=== PATIENT | male | born 1985 | race Caucasian/White ===

== ENCOUNTER 2019-04-22 08:50 | Emergency (ER) | payer MEDICAID ==
[~2019-04-22] VITALS: Ht 188 cm; Wt 87.0 kg
--- NOTE | 2019-04-22 09:00 | NUR ---
Client arived via ambulance. He was picked up in [place]. He says that he is from the [facility]. He receives Invega Sustenna in the mail from the [facility] and injects it himself. His back pack has about five boxes of Nyquil. He says he has been in the [place] for 13 years. He speaks some Nepalese but is difficult to communicate with. He is shaky and cold. Gave clietn warm blankets. He is dozing off to sleep and unable to answer many questions.
--- NOTE | 2019-04-22 09:19 | NUR ---
Pt brothers phone number: [phone]
[2019-04-22] MEDS: LORazepam 1 MG tablet PO PRN ×3 (09:30→13:43)
--- NOTE | 2019-04-22 09:37 | NUR ---
Client has risperidone and an injectable medication from the [facility] with Bhutanese writing on it.
[2019-04-22] MEDS ORDERED: RISP2TAB97 PO (09:41)
--- NOTE | 2019-04-22 10:13 | NUR ---
Lab here to draw blood. Client cooperative. Urine collected and sent. It is clear and pale yellow. Sent client's risperdal and injectable Invega to the pharmacy.
[2019-04-22 10:37] LABS: BASOPHILS % (AUTO) 0.5 % (0-1); EOSINOPHILS % (AUTO) 0.2 % (0-6); HEMATOCRIT 43.2 % (42.0-52.0); HEMOGLOBIN 14.9 g/dl (14.0-17.9); LYMPHOCYTES # (AUTO) 1.6 X10'3 (1.1-4.8); LYMPHOCYTES % (AUTO) 15.8 % (21-51); MEAN CORPUSCULAR HEMOGLOBIN 30.9 PG (27.0-31.0); MEAN CORPUSCULAR HGB CONC 34.4 g/dL (33.0-36.5); MEAN CORPUSCULAR VOLUME 89.7 FL (78-98); MEAN PLATELET VOLUME 8.3 FL (7.4-10.4); MONOCYTES # (AUTO) 0.4 X10'3 (0-0.9); MONOCYTES % (AUTO) 3.9 % (2-12); NEUTROPHILS # (AUTO) 7.9 X10'3 (1.8-7.7); NEUTROPHILS % (AUTO) 79.6 % (42-75); PLATELET COUNT 245 X10'3 (140-440); RED BLOOD COUNT 4.82 X10'6 (4.70-6.10); RED CELL DISTRIBUTION WIDTH 12.5 % (11.5-14.5); WHITE BLOOD COUNT 9.9 X10'3 (4.5-11.0)
[2019-04-22 10:45] LABS: CLARITY,URINE CLEAR (Clear); COLOR,URINE YELLOW (Yellow); GLUCOSE, URINE NEGATIVE (Neg); KETONES,URINE NEGATIVE (Neg); LEUKOCYTE ESTERASE ,URINE NEGATIVE (Neg); NITRITES, URINE NEGATIVE (Neg); OCCULT BLOOD,URINE NEGATIVE (Neg); PROTEIN,URINE NEGATIVE (Neg); UROBILINOGEN,URINE 0.2 E.U/dL (0.2-1.0)
[2019-04-22 10:46] LABS: UA COLLECTION TYPE CLN CATCH MIDSTREAM
[2019-04-22 10:52] LABS: ALANINE AMINOTRANSFERASE 35 U/L (12-78); ALBUMIN/GLOBULIN RATIO 1.1 (1.1-1.5); ALKALINE PHOSPHATASE 60 IU/L (46-116); ANION GAP 8 (8-16); ASPARTATE AMINO TRANSFERASE 13 U/L (10-37); BILIRUBIN,TOTAL 0.2 MG/DL (0.1-1.0); BLOOD UREA NITROGEN 12 MG/DL (7-18); BUN/CREATININE RATIO 13.6 (5.4-32.0); CHLORIDE 107 MMOL/L (99-107); CREATININE 0.88 MG/DL (0.60-1.10); GLUCOSE 97 MG/DL (70-104); POTASSIUM 3.8 MMOL/L (3.5-5.1); SODIUM 143 MMOL/L (135-145); TOTAL CARBON DIOXIDE 28.5 MMOL/L (24-32); TOTAL PROTEIN 7.7 G/DL (6.4-8.2); eGFR > 90 ML/MIN
[2019-04-22 10:53] LABS: URINE AMPHETAMINE SCREEN NEGATIVE (Neg); URINE BARBITUATE SCREEN NEGATIVE (Neg); URINE BENZODIAZEPINES SCREEN NEGATIVE (Neg); URINE CANNABINOID SCREEN NEGATIVE (Neg); URINE COCAINE SCREEN NEGATIVE (Neg); URINE METHADONE SCREEN NEGATIVE (Neg); URINE OPIATE SCREEN NEGATIVE (Neg); URINE PHENCYCLIDINE SCREEN NEGATIVE (Neg)
[2019-04-22 10:58] LABS: ETHANOL < 0.010 GM/DL (0.0-0.010)
[2019-04-22] MEDS: risperiDONE 2mg tablet PO SCH ×2 (11:20→12:45)
--- NOTE | 2019-04-22 12:16 | NUR ---
Registration with pt
--- NOTE | 2019-04-22 12:25 | NUR ---
Pt up to the bathroom.
--- NOTE | 2019-04-22 13:03 | NUR ---
Packet faxed to [facility]
--- NOTE | 2019-04-22 13:03 | NUR ---
Pt asking for benadryl to sleep.
[2019-04-22] MEDS ORDERED: diphenhydrAMINE 50 mg/ml inj IM ONE (13:30)
[2019-04-22] MEDS: ziprasidone 20mg capsule PO PRN (13:43)
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
--- NOTE | 2019-04-22 16:32 | NUR ---
Pt ambulated independently to the restroom.
--- NOTE | 2019-04-22 17:52 | NUR ---
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
--- NOTE | 2019-04-22 18:37 | NUR ---
Received report, assumed care of patients from Sara ANDREWS.
--- NOTE | 2019-04-22 20:14 | NUR ---
The patient is lying on his right side with eyes closed. No s/s of distress noted.
--- NOTE | 2019-04-22 21:55 | NUR ---
The patient is sleeping on his left side. Breathing even and unlabored. No s/s of distress.
--- NOTE | 2019-04-23 00:27 | NUR ---
The patient is sleeping on his abdomen. Breathing even and unlabored. No s/s of distress.
--- NOTE | 2019-04-23 02:09 | NUR ---
The patient is lying on his back. His eyes are closed and he appears to be sleeping. Breathing is unlabored. No s/s of distress.
--- NOTE | 2019-04-23 04:15 | NUR ---
Patient continues to sleep. Breathing unlabored. No s/s of distress.
--- NOTE | 2019-04-23 05:50 | NUR ---
The patient is sleeping on his right side.
--- NOTE | 2019-04-23 06:33 | NUR ---
Patient sleeping on left side. No distress observed. Continue to monitor.
--- NOTE | 2019-04-23 08:10 | NUR ---
Patient eating breakfast. States in panamanian that is he feeling better since he had a good night's sleep. Patient states he is paranoid and his employer was injecting him with medication. Continue to monitor.
[2019-04-23] MEDS: risperiDONE 2mg tablet PO SCH ×2 (08:23→19:18)
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
--- NOTE | 2019-04-23 11:05 | NUR ---
Patient reclining supine. No distress observed. Continue to monitor.
[2019-04-23] MEDS: ziprasidone 20mg capsule PO PRN ×2 (11:56→19:18)
--- NOTE | 2019-04-23 13:12 | NUR ---
Patient eating lunch. No distress observed. Continue to monitor.
--- NOTE | 2019-04-23 14:55 | NUR ---
Patient sleeping on left side. No distress observed. Continue to monitor.
--- NOTE | 2019-04-23 16:48 | NUR ---
Patient requesting benadryl to sleep. RN explained that we don't give sleep medication in the afternoon, but if he is unable to sleep he could ask for something to help him tonight. Patient verbalized understanding. Patient reclining. No distress observed. Continue to monitor.
--- NOTE | 2019-04-23 17:35 | NUR ---
Patient ambulatory to BR, steady gait.
--- NOTE | 2019-04-23 18:30 | NUR ---
Received report from DARRYL Saucedo. The patient is stable and lying on his back with his eyes closed. There are no s/s of distress.
[2019-04-23] MEDS: LORazepam 1 MG tablet PO PRN (19:18)
--- NOTE | 2019-04-23 20:30 | NUR ---
The patient is lying in the supine position with his eyes closed. Breathing is easy and unlabored. No s/s of distress.
--- NOTE | 2019-04-23 22:30 | NUR ---
Patient is sleeping in the prone position.
--- NOTE | 2019-04-24 01:18 | NUR ---
Pt lying on the bed on his back with blankets covering to his chest. RR 14 and unlabored. Eyes closed. Pt appears to be sleeping.
--- NOTE | 2019-04-24 02:06 | NUR ---
The patient is lying on his back with his eyes closed. Breathing even and unlabored. No s/s of distress.
--- NOTE | 2019-04-24 03:15 | NUR ---
Received call from John Paula. Nurse to nurse completed. The patient is accepted, but no beds open yet.
--- NOTE | 2019-04-24 03:25 | NUR ---
The patient is sleeping on his right side. Breathing even and unlabored. No s/s of distress.
--- NOTE | 2019-04-24 05:11 | NUR ---
The patient is sleeping on his back. Breathing even and unlabored. No s/s of distress.
[2019-04-24 05:50] VITALS: BP 119/79
--- NOTE | 2019-04-24 06:33 | NUR ---
Patient sleeping on left side. No distress observed. Continue to monitor.
--- NOTE | 2019-04-24 08:05 | NUR ---
RN awoke patient for medication and to eat breakfast. No distress observed. Continue to monitor.
[2019-04-24] MEDS: risperiDONE 2mg tablet PO SCH (08:09)
--- NOTE | 2019-04-24 09:35 | NUR ---
Patient reclining in bed awake. No distress observed. Continue to monitor.
--- NOTE | 2019-04-24 11:29 | NUR ---
PT. UP TO BATHROOM
--- NOTE | 2019-04-24 11:30 | NUR ---
PT. BACK IN BED, LAYING ON HIS BACK AND APPEARS TO BE IN NO DISTRESS AT THIS TIME.
--- NOTE | 2019-04-24 12:10 | NUR ---
Patient at the nurses station asking for something for sleep. RN explained that we don't give medication in the middle of day for sleep. Patient said okay and went back to bed. Continue to monitor.
--- NOTE | 2019-04-24 14:33 | NUR ---
Patient awake and reclining in bed. No distress observed. Continue to monitor.
[2019-04-24] MEDS ORDERED: ZIPR40CA2 PO (16:31)
[2019-04-24] MEDS ORDERED: PALI117D IM (16:31)
== END 2019-04-24 15:51 | disposition home or self-care (01) ==
LOC: ER 08:51 → EDBD 08:51 → ER 04-24 15:51
DX: F20.0 Paranoid schizophrenia (principal); Z79.899 Other long term (current) drug therapy
CPT/HCPCS: 36415; 80053; 80305; 80320; 81003; 84443; 85025; 96372; 99285; J1200

== ENCOUNTER 2019-04-24 15:05 | Inpatient (IN) | payer MEDICAID ==
[~2019-04-24] VITALS: Ht 169 cm; Wt 77.8 kg
[~2019-04-24 15:05] MED LIST: RISP2TAB97 PO
[2019-04-24] MEDS ORDERED: magnesium hydroxide 30ml (MOM) UD suspension PO PRN (16:25)
[2019-04-24] MEDS ORDERED: acetaminophen 325mg tablet PO PRN ×2 (16:25)
[2019-04-24] MEDS ORDERED: mag hydrox/Alum hydrox/simeth 30ml oral suspension PO PRN (16:25)
[2019-04-24] MEDS ORDERED: loperamide 2mg capsule PO PRN (16:25)
[2019-04-24] MEDS ORDERED: hydrOXYzine 25 MG tablet PO PRN (16:25)
[2019-04-24] MEDS ORDERED: LORazepam 1 MG tablet PO PRN (16:25)
[2019-04-24] MEDS ORDERED: PALI117D IM (16:31)
[2019-04-24] MEDS ORDERED: ZIPR40CA2 PO (16:31)
--- NOTE | 2019-04-24 16:41 | NUR ---
Admission note: Pt admitted to [facility] for DTS on 5150. Pt arrived at 1615 from the ER escorted by [place]. Pt reports wanting to kill himself with plan to overdose on medications. He does not have access to the meds currently but continues to endorse suicidal thoughts. Pt also experiences paranoid delusions that Americans are trying to kill him and listening to his conversations. He believes he has been given the wrong medications and that his coworkers have been mixing up his medications. PT was dropped off at a fire department by someone stating "I cannot deal with him anymore". Pt has history of Schizophrenia. Pt has made statements "I just want to ." and "Call immigration and have me deported." Pt has been living in [place] for 13 years from [place]. Pt moved to [place] for the [employer] industry. Pt still receives his medications from [facility] or [place] and gives self Invega IM shots. Last shot 04-21-19.
[2019-04-24 17:34] VITALS: BP 113/77
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
[2019-04-24] MEDS ORDERED: ziprasidone 20mg capsule PO PRN (20:00)
[2019-04-24] MEDS: risperiDONE 2mg tablet PO SCH (20:37)
[2019-04-24 20:50] VITALS: BP 109/65
--- NOTE | 2019-04-25 03:18 | NUR ---
Nursing Progress Note: Legal hold: 5150 Client on involuntary status for DTS. Report received from DARRYL Barker with use of SBAR. Why are they here: Pt admitted to [facility] for DTS on 5150. Pt reports wanting to kill himself with plan to overdose on medications. He does not have access to the meds currently, but continues to endorse suicidal thoughts. Pt also experiences paranoid delusions that Americans are trying to kill him and listening to his conversations. He believes he has been given the wrong medications and that his coworkers have been mixing up his medications. PT was dropped off at a fire department by someone stating "I cannot deal with him anymore". Pt has history of Schizophrenia. Pt has made statements "I just want to ." and "Call immigration and have me deported." Pt has been living in [place] for 13 years from [facility]. Pt moved to [place] for the [employer] industry. Pt still receives his medications from [facility] or [facility] and gives self Invega IM shots. Last shot 04-21-19. . Assessment What has happened this shift: The patient was found in his room in bed. He is resting on his back in no apparent distress. He was laying there with the covers up to his chin. The patient continues to endorse SI and paranoia. He declined to get up for snack time, and spent the entire evening in bed. S/I, H/I: Passive SI. "I just want to ." A/VH: Will not talk about them. Sleep: See sleep hours. ADL's: Independent. Group attendance: No groups at night. Were meds taken: Yes Any med S/E: None stated or observed. Mental Status Exam Appearance: Short black haired man laying in bed. Eye contact: Direct Behavior: Isolative. Speech: Clear, speaks [place] Citizen, but also speaks some French. Mood: Labile, paranoid Affect: Flat Thought process: Linear, goal directed. Thought Content: Wants to get home to the [facility]. Cognition: A/O Insight: Fair Judgment: Poor Interventions: PRN's used: Lilly Marin. Therapeutic interventions: 1:1 assessment, establishment of rapport, maintained safe therapeutic milieu, provided active listening with positive feedback, provided medication education and monitored for effects, monitored for change in behavior and provided needed interventions. Q 15 minute safety checks. Restraints/seclusion/emergency medication: N/A Justification of Continued Inpatient Treatment: Continued therapeutic support and medication management needed to provide stabilization, prevent decompensation, improve coping mechanisms decreasing risk to patient of re-admittance.
[2019-04-25 07:14] VITALS: BP 115/69
[2019-04-25 08:20] LABS: HEMOGLOBIN A1C 5.1 % (4.5-6.2)
[2019-04-25 08:22] LABS: CHOL/HDL RATIO 3.2 (0.00-4.99); CHOLESTEROL 147 MG/DL (0-200); HDL CHOLESTEROL 46 MG/DL (35-60); LDL CHOLESTEROL 102 MG/DL (50-100); TRIGLYCERIDES 61 MG/DL (20-135)
[2019-04-25] MEDS: risperiDONE 2mg tablet PO SCH (08:31)
[2019-04-25] MEDS ORDERED: risperiDONE 2mg tablet PO PRN (15:15)
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
[2019-04-25 20:17] VITALS: BP 101/68
[2019-04-25] MEDS ORDERED: temazepam 15mg capsule PO SCH (21:00)
--- NOTE | 2019-04-26 00:50 | NUR ---
Nursing Progress Note: Legal hold: 515 Client on involuntary status for DTS Report received from DARRYL Scanlon with use of SBAR Why are they here: [facility]. Pt reports wanting to kill himself with plan to overdose on medications. He does not have access to the meds currently, but continues to endorse suicidal thoughts. Pt also experiences paranoid delusions that Americans are trying to kill him and listening to his conversations. He believes he has been given the wrong medications and that his coworkers have been mixing up his medications. PT was dropped off at a fire department by someone stating "I cannot deal with him anymore". Pt has history of Schizophrenia. Pt has made statements "I just want to ." and "Call immigration and have me deported." Pt has been living in [place] for 13 years from [facility]. Pt moved to [place] for the [employer] industry. Pt still receives his medications from [facility] or [facility] and gives self Invega IM shots. Last shot 04-21-19. . Assessment What has happened this shift: Pt was sleeping at change of shift and remained in his bed except to attend HS snack. During 1:1, pt denied all symptoms, stating the medication have greatly improved everything and that what he is most concerned about now is getting quality sleep. Pt inquired whether the MD ordered a sleeping medications as discussed, RN confirmed. Pt states he is looking forward to reuniting with his family. Pt went to sleep shortly after HS medication pass. S/I, H/I: Denies A/VH: Denies Sleep: See Sleep Assessment ADL's: Independent Group attendance: N/A Were meds taken: Yes Any med S/E: None stated nor observed Mental Status Exam Appearance: Pt in unit scrubs, clean, with buzzed haircut Eye contact: Direct Behavior: Pt resting in room, only left to attend HS Snack Speech: Clear, speaks Qatari, but also speaks some Hungarian; Pt able to answer and briefly expand on assessment questions Mood: "Good" Affect: Congruent to mood Thought process: Linear Thought Content: Getting back with his family Cognition: A/Ox4 Insight: Fair Judgment: Fair Interventions: PRN's used: None Therapeutic interventions: 1:1 assessment, establishment of rapport, maintained safe therapeutic milieu, provided active listening with positive feedback, provided medication education and monitored for effects, monitored for change in behavior and provided needed interventions. Q15 minute safety checks. Restraints/seclusion/emergency medication: N/A Justification of Continued Inpatient Treatment: Continued therapeutic support and medication management needed to provide stabilization, prevent decompensation, improve coping mechanisms decreasing risk to patient of re-admittance.
[2019-04-26 07:40] VITALS: BP 107/40
[2019-04-26] MEDS: nicotine 14mg patch - 24hr TD SCH (08:29)
[2019-04-26 20:00] VITALS: BP 111/62
[2019-04-26] MEDS: temazepam 15mg capsule PO SCH (20:14)
--- NOTE | 2019-04-27 00:14 | NUR ---
Nursing Progress Note: Legal hold: 515 Client on involuntary status for DTS Report received from DARRYL Ovalle with use of SBAR Why are they here: Pt admitted to [facility] for DTS on 5150. Pt reports wanting to kill himself with plan to overdose on medications. He does not have access to the meds currently, but continues to endorse suicidal thoughts. Pt also experiences paranoid delusions that Americans are trying to kill him and listening to his conversations. He believes he has been given the wrong medications and that his coworkers have been mixing up his medications. PT was dropped off at a fire department by someone stating "I cannot deal with him anymore". Pt has history of Schizophrenia. Pt has made statements "I just want to ." and "Call immigration and have me deported." Pt has been living in [place] for 13 years from [facility]. Pt moved to [place] for the [employer] industry. Pt still receives his medications from [facility] or [facility] and gives self Invega IM shots. Last shot 04-21-19. . Assessment What has happened this shift: The patient was friendly when approached for the evening assessment. He appeared relaxed and denied anxiety. He denies feeling paranoid or having any kind of auditory or visual hallucinations. He report his mood is "happy" and he denies any kind of suicidal thoughts. He is looking forward to returning to [place]. S/I, H/I: Denies A/VH: Denies Sleep: ADL's: Independent Group attendance: N/A Were meds taken: Yes Any med S/E: None stated nor observed Mental Status Exam Appearance: Pt in unit scrubs, clean, with buzzed haircut Eye contact: Direct Behavior: Pt resting in room, only left to attend HS Snack Speech: Clear, speaks Swedish, but also speaks some Malay; Pt able to answer and briefly expand on assessment questions Mood: "Good" Affect: Congruent to mood Thought process: Linear Thought Content: Getting back with his family Cognition: A/Ox4 Insight: Fair Judgment: Fair Interventions: PRN's used: None Therapeutic interventions: 1:1 assessment, establishment of rapport, maintained safe therapeutic milieu, provided active listening with positive feedback, provided medication education and monitored for effects, monitored for change in behavior and provided needed interventions. Q15 minute safety checks. Restraints/seclusion/emergency medication: N/A Justification of Continued Inpatient Treatment: Continued therapeutic support and medication management needed to provide stabilization, prevent decompensation, improve coping mechanisms decreasing risk to patient of re-admittance.
[2019-04-27 07:51] VITALS: BP 112/64
[2019-04-27] MEDS: nicotine 14mg patch - 24hr TD SCH (08:28)
--- NOTE | 2019-04-27 17:38 | NUR ---
Nursing Progress Note: IURII Legal hold: 515 Client on involuntary status for DTS Report received from Idania Del Castillo RN with use of SBAR Why are they here: Pt [facility] to [facility] on 515. Pt reports wanting to kill himself with plan to overdose on medications. He does not have access to the meds currently, but continues to endorse suicidal thoughts. Pt also experiences paranoid delusions that Americans are trying to kill him and listening to his conversations. He believes he has been given the wrong medications and that his coworkers have been mixing up his medications. PT was dropped off at a fire department by someone stating "I cannot deal with him anymore". Pt has history of Schizophrenia. Pt has made statements "I just want to ." and "Call immigration and have me deported." Pt has been living in [place] for 13 years from [facility]. Pt moved to [place] for the [employer]. Pt still receives his medications from [place] or [facility] and gives self Invega IM shots. Last shot 04-21-19. Assessment What has happened this shift: The patient was found sleeping at change of shift. At breakfast time he appeared to mostly isolate. During 1:1 assessment pt was pleasant and cooperative. He reports his last BM this AM. When questioned about his mental state he reports, "I feel better and better everyday" with a smile on his face. He appeared relaxed and denied anxiety. He denies feeling paranoid or having any kind of auditory or visual hallucinations. He report his mood is "good" and he denies SI. He is excited for D/C [place]. Pt signed VOL paperwork today. S/I, H/I: Denies A/VH: Denies Sleep: 8hrs NOC ADL's: Independent Group attendance: No Were meds taken: Yes Any med S/E: None stated nor observed Mental Status Exam Appearance: Pt in street clothes, clean and good hygiene Eye contact: Direct Behavior: Pt napping in room Speech: Clear, speaks [place], but also speaks some American; Pt able to answer and briefly expand on assessment questions Mood: "Great" Affect: Congruent to mood Thought process: Linear Thought Content: Discharging Cognition: A/Ox4 Insight: Fair Judgment: Fair Interventions: N/A PRN's used: None Therapeutic interventions: 1:1 assessment, establishment of rapport, maintained safe therapeutic milieu, provided active listening with positive feedback, provided medication education and monitored for effects, monitored for change in behavior and provided needed interventions. Q15 minute safety checks. Restraints/seclusion/emergency medication: N/A Justification of Continued Inpatient Treatment: Continued therapeutic support and medication management needed to provide stabilization, prevent decompensation, improve coping mechanisms decreasing risk to patient of re-admittance.
[2019-04-27 20:00] VITALS: BP 115/80
[2019-04-27] MEDS: temazepam 15mg capsule PO SCH (21:00)
--- NOTE | 2019-04-28 00:44 | NUR ---
Nursing Progress Note: IURII Legal hold: 515 Client on involuntary status for DTS Report received from DARRYL Ovalle with use of SBAR Why are they here: Pt admitted to [facility] for [facility]TS on 5150. Pt reports wanting to kill himself with plan to overdose on medications. He does not have access to the meds currently, but continues to endorse suicidal thoughts. Pt also experiences paranoid delusions that Americans are trying to kill him and listening to his conversations. He believes he has been given the wrong medications and that his coworkers have been mixing up his medications. PT was dropped off at a fire department by someone stating "I cannot deal with him anymore". Pt has history of Schizophrenia. Pt has made statements "I just want to ." and "Call immigration and have me deported." Pt has been living in [place] for 13 years from [facility]. Pt moved to [place] for the [employer] industry. Pt still receives his medications from [place] or [facility] and gives self Invega IM shots. Last shot 04-21-19. Assessment What has happened this shift: This patient is isolating in his room. Patient is well oriented, w/d, he has good color. Patient is speaking in a normal tone, rate, and rhythm. His thoughts are linear. This patient denies S/I or H/I. The patient exhibits an understanding of how is problems began. At this time he states "I'm a schizophrenic, I'm back on my medications." Patient states he is feeling good. Patient didn't attend attend group on days because he thought people might not understand him. This junior underwriter explained that it is not hard to understand his speech. Patient smiled, "I'll go to group tomorrow then." This patient is goal oriented. 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 The patient is medication compliant. Patient denies any depression. "I'm getting better every day." S/I, H/I: Denies A/VH: Denies Sleep: Resting quietly, will tally in am. ADL's: Independent Group attendance: No Were meds taken: Yes Any med S/E: None stated nor observed Mental Status Exam Appearance: Pt in street clothes, clean and good hygiene Eye contact: Direct Behavior: Resting in room..l. Speech: Clear, speaks Syrian, but also speaks some Kiswahili; Pt able to answer and briefly expand on assessment questions Mood: "Great" Affect: Congruent to mood Thought process: Linear Thought Content: Discharging Cognition: A/Ox4 Insight: Fair Judgment: Fair Interventions: N/A PRN's used: None Therapeutic interventions: 1:1 assessment, establishment of rapport, maintained safe therapeutic milieu, provided active listening with positive feedback, provided medication education and monitored for effects, monitored for change in behavior and provided needed interventions. Q15 minute safety checks. Restraints/seclusion/emergency medication: N/A Justification of Continued Inpatient Treatment: Continued therapeutic support and medication management needed to provide stabilization, prevent decompensation, improve coping mechanisms decreasing risk to patient of re-admittance.
[2019-04-28 07:36] VITALS: BP 114/73
--- NOTE | 2019-04-28 08:20 | NUR ---
Initial: Pt admit w/ depression PO 75-100% majority of meals since admit w/ occasional refusal meeting needs. [facility] 04/27. No nutrition concerns at this time. Will continue to monitor. Rec: 1. continue regular diet 2. bowel care as needed Addendum: 04/28/19 at [address] Amended: Links added.
[2019-04-28] MEDS: nicotine 14mg patch - 24hr TD SCH (08:36)
[2019-04-28] MEDS ORDERED: TEMA15CA PO (12:12)
[2019-04-28] MEDS ORDERED: Miscellaneous IM (12:12)
[2019-04-28] MEDS ORDERED: RISP2TAB97 PO (12:12)
--- NOTE | 2019-04-28 14:20 | NUR ---
DISCHARGE NOTE: ORALIARII Pt was accompanied by his two friends (Efrain & Andrew) off the unit at 1420. He was headed to [place] via transportation provided by his friends. Pt has all of his belongings on his person. His follow up will be at [facility]. Pt will provide IM injs himself. He has an upbeat mood and denies any SI. He has improved immensely since admission and is in no acute physical or emotional distress. He was offered nicotine replacement but denied. Pt is only concerned about getting medications for sleep.
[2019-05-22] MEDS ORDERED: PALIPERIDONE PALMITATE IM SCH (17:25)
== END 2019-04-28 14:20 | disposition home or self-care (01) | DRG 750 ==
LOC: ADULT MH 16:01
PROVIDERS: ADMIT Psychiatry & Neurology Psychiatry; ATTEND Psychiatry & Neurology Psychiatry
DX: F20.0 Paranoid schizophrenia (principal); R45.851 Suicidal ideations; F17.210 Nicotine dependence, cigarettes, uncomplicated; F41.9 Anxiety disorder, unspecified; G47.00 Insomnia, unspecified; Z79.899 Other long term (current) drug therapy
CPT/HCPCS: 36415; 80061; 83036; 84443; 87081